=== PATIENT | male | born 1965 | race Caucasian/White ===

== ENCOUNTER 2022-02-10 15:03 | Emergency (ER) | payer OTHER, SELFPAY ==
--- NOTE | ~2022-02-10 | CT_ITS ---
EXAMINATION: CT cervical spine wo con DATE: 02/10/2022 15:57 INDICATION: Neck pain and stiffness. TECHNIQUE: Computed tomography (CT) of the cervical spine was performed without intravenous contrast. Automated exposure control and iterative reconstruction technique were employed. The dose-length pro duct was 513.58 mGy-cm. COMPARISON: CT cervical spine 02/05/2015 FINDINGS: A calcified right lung nodule and calcified mediastinal lymph nodes are consistent with old granulomas disc disease. There is mild kyphosis of lower cervical spine. There is 7 degrees levocurv ature of cervical spine. There is mild chronic height loss of C7 vertebral body. There are changes of anterior fusion procedure at C4-C5 with interbody device and anterior plate and screws. There is mil dly decreased disc height at C5-C6 with interbody fusion. There is severely decreased disc height at C6-C7 with endplate remodeling. Osseous central spinal canal is developmentally small. The following disc levels are specifically discussed: C2-C3: There is mild bilateral uncovertebral joint osteoarthritis. There is severe bilateral facet mimi int osteoarthritis. There is mild bilateral neural foraminal stenosis. There is mild central canal st enosis. C3-C4: There is mild bilateral uncovertebral joint osteoarthritis. There is severe right and moderate left facet joint osteoarthritis. There is mild bilateral neural foraminal stenosis. There is mild ce ntral canal stenosis. C4-C5: There is severe right and moderate left uncovertebral joint hypertrophy. There is ankylosis of the facet joints with mild hypertrophy. There is mild bilateral neural foraminal stenosis. There is mild central canal stenosis. C5-C6: There is ankylosis of the uncovertebral joints with mild hypertrophy. There is mild bilateral facet joint osteoarthritis. There is mild bilateral neural foraminal stenosis. There is mild central canal stenosis. C6-C7: There is severe bilateral uncovertebral joint osteoarthritis. There is severe right and mild l eft facet joint osteoarthritis. There is mild bilateral neural foraminal stenosis. There is mild cent ral canal stenosis. C7-T1: There is no uncovertebral joint osteoarthritis. There is moderate bilateral facet joint osteoa rthritis. There is no neural foraminal stenosis. There is no central canal stenosis. IMPRESSION: 1. Moderate cervical spondylosis, worsened from 02/05/2015. 2. Anterior fusion from C4 to C6. Reviewed, dictated and finalized at location A.
[2022-02-10 15:30] VITALS: BP 108/64; PULSE 102; RESP 18; TEMP 37; O2SAT 99
--- NOTE | 2022-02-10 15:33 | ED.GENADULT ---
HPI - General Adult General Chief complaint: Unspecified Stated complaint: neck pain Time Seen by Provider: 02/10/22 15:33 History of Present Illness HPI narrative: Patient is a 56-year-old male with a history of cervical stenosis here for evaluation of acute on chronic neck pain. Patient states he has been dealing with neck pain for the past 10 years. He has had procedure on the neck that he is unsure the name of. States the neck pain came back about a month ago, has worsened over the past 3 days. He states his neck feels stiff, and occasionally will have a shooting paresthesias on his right arm. He presented to [facility] 3 days ago upon symptom onset, tells me he had a full work-up but they did not do imaging of his neck. He has not taken any medications for his pain at home. He denies any fevers, chills, nausea, vomiting, headaches, visual changes. He is able to move his neck but he states it is painful. Related Data Allergies Allergy/AdvReac Type Severity Reaction Status Date / Time tramadol Allergy Unknown Unknown Verified 02/10/22 15:33 KETOROLAC TROMETHAMINE Allergy Unknown BLOOD Uncoded 02/17/16 22:29 CLOTTING, RASH, FEVER Review of Systems Review of Systems: Gen: Denies fevers or chills Eyes: Denies eye pain or visual change ENT: Denies congestion Respiratory: Denies shortness of breath or cough CV: Denies chest pain or palpitations GI: Denies abdominal pain nausea, emesis or diarrhea : denies burning, urgency, frequency or hematuria Musculoskeletal: Reports neck pain. Denies back pain or muscle pain Neuro: Denies numbness, tingling, weakness or focal weakness Skin: Denies rash Except as documented, all other systems reviewed and negative [facility] Family History Family History (Updated 12/04/15 @ 23:19 by DOCTOR UNKNOWN) Sibling Family history of obesity Depression Hypertension Cerebrovascular accident Mother Depression Family history of migraine headaches Hypertension Cerebrovascular accident Family history of malignant neoplasm Family history of diabetes mellitus in first degree relative Father Depression Family history of migraine headaches Cerebrovascular accident Family history of malignant neoplasm Family history of coronary artery disease Family history of heart disease in male family member before age 55 Other Asthma Diabetes mellitus Social History Social History Smoking status: Current every day smoker Second hand tobacco smoke exposure: Yes Alcohol intake: never Exam Narrative: APPEARANCE: Well appearing, no pain in distress, well-nourished. Head: Normocephalic and atraumatic. EYES: PERRLA/EOMI, conjunctivae clear NOSE: No nasal drainage EARS: External ear normal in appearance THROAT: Oropharynx is clear. Mucous membranes are moist. NECK: Supple. No adenopathy, no masses. RESPIRATORY: Airway patent, respirations nonlabored. Clear to auscultation bilaterally, no rales, rhonchi, wheezing. CARDIOVASCULAR: Regular rate and rhythm without murmurs, rubs, or gallops. ABDOMINAL: Normoactive bowel sounds. Soft, nontender, nondistended. No rebound tenderness or guarding. MUSCULOSKELETAL: Spurling's test positive on the right. No midline tenderness to palpation of C-spine. Full range of motion in neck, notes most pain is with lateral flexion of the head. NEURO: Normal speech. No focal neurologic deficits. SKIN: Skin is warm and dry. No rashes. PSYCHIATRIC: Normal affect/mood. Course Vital Signs Vital signs: Vital Signs Temperature 98.6 F 02/10/22 15:30 Pulse Rate 102 H 02/10/22 15:30 Respiratory Rate 18 02/10/22 15:30 Blood Pressure 108/64 02/10/22 15:30 Pulse Oximetry 99 02/10/22 15:30 Temperature 98.6 F 02/10/22 15:30 Pulse Rate 102 H 02/10/22 15:30 Respiratory Rate 18 02/10/22 15:30 Blood Pressure 108/64 02/10/22 15:30 Pulse Oximetry 99 02/10/22 15:30 Medical Decision Making [facility] Narrative
[2022-02-10] MEDS: LIDOCAINE 5% PATCH 1 PATCH TRANSDERM (16:07)
[2022-02-10] MEDS: CYCLOBENZAPRINE HCL 10 MG TABLET PO (16:07)
[2022-02-10] MEDS: ACETAMINOPHEN 325 MG TABLET 650 MG PO (16:07)
== END 2022-02-10 16:41 | disposition home or self-care (01) ==
PROVIDERS: Emergency Provider Emergency Medicine; PCP Family Medicine
DX: M47.812 Spondylosis without myelopathy or radiculopathy, cervical region (principal); F17.200 Nicotine dependence, unspecified, uncomplicated
CPT/HCPCS: 72125; 99284; A9270

== ENCOUNTER 2022-05-22 09:51 | Outpatient (CLI) | payer OTHER, SELFPAY ==
--- NOTE | ~2022-05-22 | MR_ITS ---
MRI of the cervical spine Clinical History: Neck pain Technique: Axial T2-weighted and gradient images, and sagittal T1-weighted, T2-weighted, and STIR jewell ges were acquired. Findings: There is anterior fusion across the C4-C5 disc space with associated focal susceptibility a rtifact. No fracture or subluxation evident otherwise. No other significant bone marrow signal abnorm ality identified. At C2-C3, there is minimal disc osteophyte complex. No spinal canal stenosis or cord compression. The re is probable mild left neural foraminal narrowing. Right neural foramen preserved. At C3-C4, there is disc osteophyte complex resulting in mild central canal stenosis and minimal monty ening of the ventral cord. There is bilateral neural foraminal narrowing. At C4-C5, there is no disc bulge or herniation. No spinal canal stenosis or cord compression evident. There is bilateral neural foraminal narrowing. At C5-C6, there is minimal disc osteophyte complex. No vonda spinal canal stenosis or cord compressio n. There is probable minimal bilateral neural foraminal narrowing. At C6-C7, there is disc osteophyte complex resulting in focal mild canal stenosis without vodna cord compression. There is bilateral neural foraminal narrowing. There is decreased caliber the spinal cord with increased T2 signal at the C4-C5 level, likely reflec ting and chronic myelomalacia. Paravertebral soft tissues are unremarkable. Impression: Decreased caliber of the spinal cord with increased T2 signal to C4-C5 level, likely reflecting seque la of chronic myelomalacia. Correlate for other infectious/inflammatory disorder the spinal cord. Anterior fusion at C4-C5. Mild degenerative spondylitic changes, as detailed above, with multilevel neural foraminal narrowing present. Reviewed, dictated and finalized at [facility]. 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 Correlate for other infectiou s/inflammatory disorder the spinal cord. Anterior fusion at C4-C5. Mild degenerative spondylitic changes, as detailed above, with multilevel neura l foraminal narrowing present.
== END 2022-05-22 09:52 | disposition home or self-care (01) ==
PROVIDERS: PCP Family Medicine; Visit Provider Nurse Practitioner Adult Health
DX: M54.2 Cervicalgia (principal); M48.02 Spinal stenosis, cervical region; Z98.1 Arthrodesis status
CPT/HCPCS: 72141

== ENCOUNTER 2022-06-29 10:14 | Outpatient (CLI) | payer OTHER, SELFPAY ==
--- NOTE | 2022-06-29 10:00 | ECG_ITS ---
Measurements Intervals [place] Rate: 82 P: 72 HI: 153 QRS: 28 QRSD: 105 T: 57 QT: 374 QTc: 437 Interpretive Statements SINUS RHYTHM WITH OCCASIONAL SUPRAVENTRICULAR PREMATURE COMPLEXES INCOMPLETE RIGHT BUNDLE BRANCH BLOCK NO PREVIOUS ECG AVAILABLE FOR COMPARISON Electronically Signed On 06-29-2022 15:02:25 MATERIAL CONTROL SUPERVISOR by Bria Velez M.D.
[2022-06-29 11:22] LABS: Hematocrit 37.1 % (42.0-52.0); Hemoglobin 12.2 g/dL (14.0-18.0); Mean Corpuscular HGB Conc 32.9 g/dl (32-36); Mean Corpuscular Hemoglobin 27.7 pg (26-34); Mean Corpuscular Volume 84.3 fl (80-100); Mean Platelet Volume 9.5 fl (7.4-10.4); Platelet Count Result 354 k/mm3 (150-375); Red Cell Distribution Width 15.4 % (11.5-14.5); White Blood Count 5.8 K/mm3 (4.5-10.0)
[2022-06-29 11:27] LABS: INR 1.1; Partial Thromboplastin Time 33.7 SECONDS (22.3-36.8)
[2022-06-29 11:28] LABS: Anion Gap 6 mmol/L (8-16); Blood Urea Nitrogen 13 mg/dL (9-20); Calcium 8.9 mg/dL (8.4-10.2); Carbon Dioxide 26 mmol/L (22-30); Chloride 107 mmol/L (98-107); Estimated Glomerular Filt Rate > 60; Glucose 107 mg/dL (65-110); Potassium 4.1 mmol/L (3.4-5.0); Sodium 139 mmol/L (137-145)
[2022-06-29 12:02] LABS: Appearance Urine Clear (Clear); Bilirubin Urine Negative (Negative); Blood Urine Trace-intact (Negative); Color Urine Yellow (Yellow); Glucose Urine UA Negative (Negative); Ketones Urine Negative (Negative); Leukocyte Esterase Ur Negative LEU/UL (NEGATIVE); Nitrate Urine Negative (Negative); Protein Urine Negative (Negative); Specific Grav Ur 1.015 (1.001-1.035); Urobilinogen Urine 0.2 mg/dL (<2.0)
[2022-06-29 12:37] LABS: Add Urine Microscopic? YES; Mucus Urine Rare /lpf; RBC Urine 0-2 /hpf (0-2); WBC Urine 0-3 /hpf (0-3)
== END 2022-06-29 10:15 | disposition home or self-care (01) ==
PROVIDERS: PCP Family Medicine; Visit Provider Neurological Surgery
DX: Z01.818 Encounter for other preprocedural examination (principal); I45.10 Unspecified right bundle-branch block
CPT/HCPCS: 36415; 80048; 81001; 85027; 85610; 85730; 86850; 86900; 86901; 93005

== ENCOUNTER 2024-08-31 12:41 | Outpatient (CLI) | payer OTHER, SELFPAY ==
--- NOTE | ~2024-08-31 | CT_ITS ---
Non-contrast CT scan of the Abdomen and Pelvis Clinical indication: Incisional hernia Technique: 2.5 mm axial scans were obtained through the abdomen and pelvis without intravenous or or al contrast. Dose reduction technique was used on this scan by utilizing automated exposure control a nd iterative reconstruction technique. The dose-length product (DLP) was 1009.04 mGy-cm. Findings: Images through the lung bases reveal no abnormalities. Calcified hepatic and splenic granulomas are present. Probable small hyperdense left renal cyst. The kidneys, pancreas, gallbladder, and adrenals otherwise appear normal. There are atherosclerotic calci fications of the aorta. There is no evidence of bowel obstruction. Images through the pelvis were performed. There is no evidence of ascites or lymphadenopathy. Urinary bladder unremarkable. No pelvic mass seen. No ascites. Chronic appearing compression fractures of T12 and L3 are present. There are bilateral L4 pars intera rticularis defects, with minimal grade 1 anterolisthesis of L4 over L5. Impression: No significant hernia. Chronic compression fractures of T12 and L3. Bilateral L4 pars interarticularis defects. Evidence of prior granulomatous disease. Reviewed, dictated and finalized at [facility]. Impression: No significant hernia. Chronic compression fractures of T12 and L3. Bilateral L4 pars interarticularis defects. Evidence of prior granulomatous disease.
--- OUTSIDE RECORDS SUMMARY | 2024-08-31 12:47 | XMS_ITS | Clinical Summary ---
Author Organization [facility] Address [address] [place] [address] Care Team Providers Care End Touching Machine Operator Name Role Phone Emilia Gardner DO Primary Care Provider [phone] Source Comments [facility],non-owned Affiliates and Associated Physician Practices is amultiple site organization consisting of ambulatory clinics and hospital sitesin [place], [place], [place] and [place]. This disclosure is being madepursuant to the Care Everywhere program and may not contain all information available regarding this patient. Last updated 18.[facility] Allergies Active Allergy Reactions Criticality Noted Date Comments Ketorolac Nausea and/or Vomiting,Rash Medium 07/15/19 21 Ketorolac Tromethamine Other Low 05/17/2014 Tramadol Nausea and/or Vomiting,Rash Medium 05/17/19 15 Medications * Be aware that medications may not be up to date on this document. Alwaysverify current medications with the patient. Alprazolam (ALPRAZOLAM XR) 2 MG TB24 4 times daily. Activ e amLODIPine (NORVASC) 10 MG tablet amlodipine 10 mg tablet Active famotidine (PEPCID) 20 MG tablet famotidine 20 mg tablet Active FLUoxetine (PROZAC) 40 MG capsule 1 Active mirtazapine (REMERON) 45 MG tablet mirtazapine 45 mg tablet Active zolpidem (AMBIEN) 10 MG tablet zolpidem 10 mg tablet Active oxyCODONE-aceta minophen (PERCOCET) 5-325 MG tablet Take 1 (one) tablet by mouth 2 times daily as needed for Pain 14 tablet 1 Active Additional Information Patient not taking.Reported on 05/09/2023 rivaroxaban (Xarelto) 20 MG tablet Take 1 (one) tablet by mouth daily with food Active levothyroxine (Synthroid) 50 MCG tablet Take 1 (one) tablet by mouth daily before breakfast Active magnesium oxide (Mag-Ox) 400 MG tablet Take 1 (one) tablet by mouth once daily Active OLANZapine (ZyPREXA) 20 MG tablet Take 1 (one) tablet by mouth once daily Active dilTIAZem (Cardizem) 60 MG tablet Take 1 (one) tablet by mouth 4 times daily Active atorvastatin (Lipitor) 40 MG tablet Take 1 (one) tablet by mouth at bedtime Active lidocaine (Lidoderm) 5 % patch 3 Active predniSONE (Deltasone) 20 MG tablet 3 Active neomycin-polymy justin-hc (Cortisporin) 3.5-78225-7 otic suspension 3 Active ezetimibe (Zetia) 10 MG tablet 3 Active vitamin D, ergocalciferol, (Drisdol) 1.25 MG (81263 UT) capsule 3 Active gabapentin (Neurontin) 300 MG capsuleIndicati ons:Arthropathy of cervical facet joint Take 1 (one) capsule by mouth 3 times daily 90 capsule 2 4 Active cyclobenzaprine (Flexeril) 10 MG tabletIndicatio ns:Arthropathy of cervical facet joint Take 1 (one) tablet by mouth 3 times daily as needed for Muscle Spasms 90 tablet 2 4 Active Active Problems Problem Noted Date Diagnosed Date Degeneration of lumbar or lumbosacral interverte bral disc 06/15/2012 Back pain 06/13/2012 Immunizations Immunization Administration Dates Next Due [employer] primary monovalent 12+ yr 0.3mL Pur ple cap 08/31/2020 Family History Medical History Relation Name Comments Cancer - Stomach Father Cancer Mother Relation Name Status Comments Father Mother Social History Tobacco Use Types Packs/Day Years Used Date Smoking Tobacco: Every Day Cigarettes Smokeless Tobacco: Never Alcohol Use Standard Drinks/Week Comments Not Currently 0 (1 standard drink = 0.6 oz pur e alcohol) Sex and Gender Information Value Date Recorded Sex Assigned at Not on file Legal Sex Male 12:52 PM DINING 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 TABLES SET UP ATTENDANT Gender Identity Not on file Sexual Orientation Not on file Last Filed Vital Signs Vital Sign Reading Time Taken Comments Blood Pressure 130/80 09/29/2023 10:30 AM CDT Pulse 87 09/29/2023 10:30 AM CDT Temperature 36.7 C (98 F) 09/29/2023 10:30 AM CDT Respiratory Rate 16 09/29/2023 10:30 AM CDT Oxygen Saturation 97% 05/17/2023 6:09 PM DINING ROOM TABLES SET UP ATTENDANT Inhaled Oxygen Concentration - - Weight 98 kg (216 lb) 05/23/2023 11:02 AM DINING ROOM TABLES SET UP ATTENDANT Height 175.3 cm (5' 9 ) 05/23/2023 11:02 AM DINING ROOM TABLES SET UP ATTENDANT Body Mass Index 31.9 05/23/2023 11:02 AM DINING ROOM TABLES SET UP ATTENDANT Plan of Treatment Health Maintenance Due Date Last Done Comments COLON MONITORING 1963 COLONOSCOPY - COLON CA SCREENING 1963 CT COLONOGRAPHY - COLON CA SCREENING 1963 FIT - COLON CA SCREENING 1963 FLEX SIG - COLON CA SCREENING 1963 HIV SCREENING 1978 HEPATITIS C SCREENING 06/11/1981 DTAP/TDAP/TD VACCINES (1 - Tdap) 1982 PNEUMOCOCCAL VACCINE 50+ (1 of 2 - PCV) 1982 ZOSTER VACCINE (1 of 2) 2013 COVID-19 VACCINE (2 - season) 2024 08/31/2020 DEPRESSION SCREENING 05/08/2024 COLOGUARD (AGES 45-75) - COLON CA SCREENING 09/01/2024 09/01/2021 Colorectal Cancer Screening 09/01/2024 INFLUENZA VACCINE (Season Ended) 2025 02/22/2023, 05/19/2022, 01/21/2021, Additional history exists SCREENING FOR DIABETES 05/18/2026 , 10/02/2020, 05/17/2014 Respiratory Syncytial Virus (RSV) Vaccine Pt: or over 60 yrs (1 - 1-dose 75+ series) 2038 HEPATITIS B VACCINE Aged Out No longe r eligible based on patient's age to complete this topic HIB VACCINE Aged Out No longer eligi ble based on patient's age to complete this topic HPV VACCINE Aged Out No longer eligi ble based on patient's age to complete this topic MENINGOCOCCAL (Group B) VACCINE SHARED DECISION-MAKING Aged Out No longer eligible based on patient's age to complete this topic MENINGOCOCCAL GROUPS A/C/Y/W VACCINE Aged Out No longer eligible based on patient's age to complete this topic Procedures Procedure Name Priority Date/Time Associated Diagnosis Comments COMPREHENSIVE METABOLIC PANEL STAT 05/18/2023 1:51 AM DINING ROOM TABLES SET UP ATTENDANT from Last 3 Months or Most Recently Relevant to Health Maintenance Results * COMPREHENSIVE METABOLIC PANEL (05/18/2023 1:51 AM DINING ROOM TABLES SET UP ATTENDANT) BUN 10 7 - 26 mg/dL 05/18/2023 2:34 AM [facility] Creatinine 0.97 0.71 - 1.16 mg/dL 05/18/2023 2:34 AM [facility] Sodium 142 136 - 145 mmol/L 05/18/2023 2:34 AM [facility] Potassium 4.1 3.5 - 4.5 mmol/L 05/18/2023 2:34 AM [facility] Chloride 107 98 - 107 mmol/L 05/18/2023 2:34 AM [facility] CO2 26 22 - 29 mmol/L 05/18/2023 2:34 AM [facility] Glucose 88 70 - 115 mg/dL 05/18/2023 2:34 AM [facility] Calcium 9.0 8.4 - 10.2 mg/dL 05/18/2023 2:34 AM [facility] Protein Total 7.0 6.0 - 8.3 g/dL 05/18/2023 2:34 AM [facility] Albumin 4.0 3.4 - 5.0 g/dL 05/18/2023 2:34 AM [facility] Bilirubin Total 0.3 0.2 - 1.2 mg/dL 05/18/2023 2:34 AM [facility] Alkaline Phosphatase 100 40 - 150 U/L 05/18/2023 2:34 AM [facility] ALT 13 5 - 55 U/L 05/18/2023 2:34 AM [facility] AST 17 5 - 34 U/L 05/18/2023 2:34 AM [facility] Anion Gap 9 6 - 16 05/18/2023 2:34 AM [facility] BUN/Creatinine Ratio 10 7 - 23 05/18/2023 2:34 AM [facility] Osmolality Calculated 292 275 - 295 mOsm/kg 05/18/2023 2:34 AM [facility] Albumin/Globulin Ratio 1.3 1.1 - 2.3 05/18/2023 2:34 AM [facility] eGFR by CKD-EPI 90 >=90 mL/min/1.7 3 m2 05/18/2023 2:34 AM [facility] Blood BLOOD SPECIMEN / Unknown Venipuncture / Unknown 05/18/2023 1:51 AM [facility] 05/18/2023 2:04 AM [facility] Oliver Salgado MD LAB - CHEMISTRY ORDERABLES Final Result Performing Organization Address City/[facility] de Phone Number [facility] [address] [place] [address], [facility] [phone] from Last 3 Months or Most Recently Relevant to Health Maintenance Insurance [facility] Care Teams End Touching Machine Operator Relationship Specialty Start Date End Date Emilia Gardner DO [address] [facility] [address] [address] PCP - General 04/30/24
--- OUTSIDE RECORDS SUMMARY | 2024-08-31 12:47 | XMS_ITS | Continuity of Care Document ---
Author Organization [facility] Address [address] [place] [address] Phone Care Team Providers Care Fisher Lobster Name Role Phone Anthony Roe MD Unavailable Unavailable Advance Directives Directive Yes / No Effective Date File Name No Information Encounters Encounter Description Practice Location Reason(s) For Visit Diagnoses Date Provider Providers Copied on Encounter [facility], [address] [facility] [place] [id number], [place] tel:[phone] [facility] No Information Bhupinder Cruz. [address], [place], [place], [id number], [place]. tel:[phone] Family History Family Member Type Diagnosis Age At Onset No Information Payers Payer name Insurance type Covered democrat ID Authoriza tion(s) No Information Social History Type Description Quantity Date Captured Comments Sex Male Smoking Status No Information Chief Complaint And Reason For Visit No Information Plan Of Treatment Date Type Action Status No Information History Of Present Illness Encounter Date Complaint History Of Prese nt Illness No Information Instructions Date Instruction Additional Infor mation No Information Assessments Type Assessment Date No Information
--- OUTSIDE RECORDS SUMMARY | 2024-08-31 12:47 | XMS_ITS | Data Portability ---
Author Organization [facility] [employer], Main Office Address [address] [place] [address] Assessment No assessment recorded. Plan of Treatment Reminders Order Date Submit Date Provider Last Modified By Organization Details Last Modified Time Details Appointments None recorded. Lab TSH, serum or plasma 2022 023 [email or web address] [facility] (Lab), [address] [place], [address], 3 12:31:32 magnesium, serum or plasma 2022 023 [email or web address] Not available 20:00:43 hepatitis C virus RNA, quant, PCR, serum or plasma 2022 023 [email or web address] Not available 23:07:26 hepatic function panel, serum 2022 023 [email or web address] Not available 20:00:30 vitamin D, 25-hydroxy, total, serum 2022 023 [email or web address] Not available 02:08:37 CBC w/ auto diff 2022 023 [email or web address] Not available 3 19:28:49 BMP, serum or plasma 2022 023 [email or web address] Not available 20:00:41 TSH, serum or plasma 2022 023 [email or web address] Not available 20:21:04 Referral neurologist referral - Please call patient to schedule an appointment . Thank you 2023 024 [email or web address] [facility] [address] [facility], [place], [address], 4 08:49:43 pain management referral 2022 023 [email or web address] [place], [address] Vin Sharma, [address], [address], 4 18:10:07 Procedures None recorded. Surgeries None recorded. Imaging None recorded. Medication Orders hydrocodone 10 mg-acetamin ophen 325 mg tablet 2023 024 [email or web address] [facility] #40702, [address], [place], [place], [id number], 4 14:51:18 alprazolam 0.5 mg tablet 2023 024 [facility] #43381, [address], [place], [place], [id number], 4 11:39:14 hydrocodone 5 mg-acetamin ophen 325 mg tablet 2022 023 [email or web address] #24449, [address], [place], [place], [id number], 4 11:25:55 alprazolam 1 mg tablet 2022 023 [email or web address] #03203, [address], [place], [place], [id number], 4 11:26:02 alprazolam 2 mg tablet 2022 023 [email or web address] #38171, [address], [place], [place], [id number], 4 11:26:08 prednisone 20 mg tablet 2022 023 [email or web address] #25930, [address], [id number], 4 11:26:15 neomycin-po lymyxin-hyd rocort 3.5 mg-10,000 unit/mL-1 % ear drops,susp 2022 023 [email or web address] [facility] #39604, [address], [place], [place], [id number], 4 11:26:24 Patient TargetsNo targets recorded. Patient InstructionsNo instructions recorded. Reason for Referral Pain Management Referral for Degeneration of cervical intervertebral disc Referring Physician: Cristel Mclaughlin [facility], Encounter Date: 11/22/2022 Neurologist Referral for Dorothea chnoid cyst Please call patient to schedule an appointment. Thank you Referring Physician: Cristel Mclaughlin [facility], Encounter Date: 08/23/2023 Results Created Date Observation Date Name Description Value Unit Range Abnormal Flag Note LastModifiedBy Organization Detail LastModifiedTime 02/23/2002/22/2023 CBC/C OMPLE TE BLD COUNT W/DIF F white blood cells 6.1 x10'3 /uL 4.2-10 .8 Not Available [facility] (Lab) [address] [place], [address], 02/22/2023 19:28:49 02/23/2002/22/2023 CBC/C OMPLE TE BLD COUNT W/DIF F red blood cells 4.20 x10'6 /uL 4.10-5 .80 Not Available [facility] (Lab) [address] [place], [address], 02/22/2023 19:28:49 02/23/2002/22/2023 CBC/C OMPLE TE BLD COUNT W/DIF F hemoglobin 11.7 g/dL 13.2-1 7.0 low Not Available [facility] (Lab) [address] [place], [address], 02/22/2023 19:28:49 02/23/2002/22/2023 CBC/C OMPLE TE BLD COUNT W/DIF F hematocrit 37.0 % 39.3-5 0.0 low Not Available [facility] (Lab) [address] [place], [address], 02/22/2023 19:28:49 02/23/2002/22/2023 CBC/C OMPLE TE BLD COUNT W/DIF F mean red cell volume 88.1 fL 80.0-9 7.0 Not Available [facility] (Lab) [address] [place], [address], 02/22/2023 19:28:49 02/23/2002/22/2023 CBC/C OMPLE TE BLD COUNT W/DIF F mean red cell hemoglobin 27.9 pg 27.0-3 3.0 Not Available [facility] (Lab) [address] [place], [address], 02/22/2023 19:28:49 02/23/2002/22/2023 CBC/C OMPLE TE BLD COUNT W/DIF F mean RBC HGB concentratio n 31.6 g/dL 31.0-3 6.0 Not Available [facility] (Lab) [address] [place], [address], 02/22/2023 19:28:49 02/23/2002/22/2023 CBC/C OMPLE TE BLD COUNT W/DIF F red cell distribution width 14.8 % 11.8-1 5.5 Not Available [facility] (Lab) [address] [place], [address], 02/22/2023 19:28:49 02/23/2002/22/2023 CBC/C OMPLE TE BLD COUNT W/DIF F platelets 344 x10'3 /uL 150-40 0 Not Available [facility] (Lab) [address] [place], [address], 02/22/2023 19:28:49 02/23/2002/22/2023 CBC/C OMPLE TE BLD COUNT W/DIF F mean platelet volume 9.8 fL 9.0-12 .4 Not Available [facility] (Lab) [address] [place], [address], 02/22/2023 19:28:49 02/23/2002/22/2023 CBC/C OMPLE TE BLD COUNT W/DIF F neutrophils 70.4 % 39.0-7 2.0 Not Available [facility] (Lab) [address] [place], [address], 02/22/2023 19:28:49 02/23/2002/22/2023 CBC/C OMPLE TE BLD COUNT W/DIF F lymphocytes 17.6 % 16.0-4 7.0 Not Available [facility] (Lab) [address] [place], [address], 02/22/2023 19:28:49 02/23/2002/22/2023 CBC/C OMPLE TE BLD COUNT W/DIF F monocytes 8.5 % 5.0-12 .0 Not Available [facility] (Lab) [address] [place], [address], 02/22/2023 19:28:49 02/23/2002/22/2023 CBC/C OMPLE TE BLD COUNT W/DIF F eosinophils 2.3 % 1.0-7. 0 Not Available [facility] (Lab) [address] [place], [address], 02/22/2023 19:28:49 02/23/2002/22/2023 CBC/C OMPLE TE BLD COUNT W/DIF F basophils 1.0 % 0.0-2. 0 Not Available [facility] (Lab) [address] [place], [address], 02/22/2023 19:28:49 02/23/2002/22/2023 CBC/C OMPLE TE BLD COUNT W/DIF F immature granulocytes 0.2 % 0.00-0 .50 Not Available [facility] (Lab) [address] [place], [address], 02/22/2023 19:28:49 02/23/2002/22/2023 CBC/C OMPLE TE BLD COUNT W/DIF F neutrophils, absolute count 4.32 x10'3 /uL 1.5-8. 0 Not Available [facility] (Lab) [address] [place], [address], 02/22/2023 19:28:49 02/23/2002/22/2023 CBC/C OMPLE TE BLD COUNT W/DIF F lymphocytes, absolute count 1.08 x10'3 /uL 1.07-3 .43 Not Available [facility] (Lab) [address] [place], [address], 02/22/2023 19:28:49 02/23/2002/22/2023 CBC/C OMPLE TE BLD COUNT W/DIF F monocytes, absolute count 0.52 x10'3 /uL 0.29-0 .99 Not Available [facility] (Lab) [address] [place], [address], 02/22/2023 19:28:49 02/23/2002/22/2023 CBC/C OMPLE TE BLD COUNT W/DIF F eosinophils, absolute count 0.14 x10'3 /uL 0.02-0 .53 Not Available [facility] (Lab) [address] [place], [address], 02/22/2023 19:28:49 02/23/2002/22/2023 CBC/C OMPLE TE BLD COUNT W/DIF F basophils, absolute count 0.06 x10'3 /uL 0.01-0 .08 Not Available [facility] (Lab) [address] [place], [address], 02/22/2023 19:28:49 02/23/20 23 02/22/2023 CBC/C OMPLE TE BLD COUNT W/DIF F immature granulocytes ,absolute 0.01 x10'3 /uL 0.00-0 .05 Not Available [facility] (Lab) [address] [place], [address], 02/22/2023 19:28:49 02/23/2002/22/2023 CBC/C OMPLE TE BLD COUNT W/DIF F nucleated red blood cells 0.0 % -0 Not Available [facility] (Lab) [address] [place], [address], 02/22/2023 19:28:49 02/23/2002/22/2023 CBC/C OMPLE TE BLD COUNT W/DIF F NRBC# 0.00 x10'3 /uL Not Available [facility] (Lab) [address] [place], [address], 02/22/2023 19:28:49 02/23/20 23 02/22/2023 HEPAT IC/LI ARMANDO PANEL alkaline phosphatase 118 U/L 38-126 Not Available [facility] (Lab) [address] [place], [address], 02/22/2023 20:00:30 02/23/20 23 02/22/2023 HEPAT IC/LI ARMANDO PANEL alanine aminotransfe rase 27 U/L 0-50 Not Available [facility] (Lab) [address] [place], [address], 02/22/2023 20:00:30 02/23/20 23 02/22/2023 HEPAT IC/LI ARMANDO PANEL aspartate aminotransfe rase 29 U/L 15-46 Not Available [facility] (Lab) [address] [place], [address], 02/22/2023 20:00:30 02/23/2002/22/2023 HEPAT IC/LI ARMANDO PANEL bilirubin, total 0.20 mg/dL 0.20-1 .30 Not Available [facility] (Lab) [address] [place], [address], 02/22/2023 20:00:30 02/23/2002/22/2023 HEPAT IC/LI ARMANDO PANEL bilirubin, conjugated (direct) 0.00 mg/dL 0.00-0 .30 Not Available [facility] (Lab) [address] [place], [address], 02/22/2023 20:00:30 02/23/20 23 02/22/2023 HEPAT IC/LI ARMANDO PANEL biliurubin,u ncong. (indirect) 0.10 mg/dL 0.00-1 .1 Not Available [facility] (Lab) [address] [place], [address], 02/22/2023 20:00:30 02/23/2002/22/2023 HEPAT IC/LI ARMANDO PANEL total protein 7.2 g/dL 6.3-8. 2 Not Available [facility] (Lab) [address] [place], [address], 02/22/2023 20:00:30 02/23/2002/22/2023 HEPAT IC/LI ARMANDO PANEL albumin 4.4 g/dL 3.4-5. 0 Not Available [facility] (Lab) [address] [place], [address], 02/22/2023 20:00:30 02/23/2002/22/2023 HEPAT IC/LI ARMANDO PANEL globulin 2.8 g/dL 2.6-4. 2 Not Available [facility] (Lab) [address] [place], [address], 02/22/2023 20:00:30 02/23/20 23 02/22/2023 HEPAT IC/LI ARMANDO PANEL A/G ratio 1.6 ratio 1.0-2. 0 Not Available [facility] (Lab) [address] [place], [address], 02/22/2023 20:00:30 02/23/20 23 02/22/2023 BASIC METAB OLIC PANEL sodium 134 mmol/ L 137-14 5 low Not Available [facility] (Lab) [address] [place], [address], 02/22/2023 20:00:41 02/23/2002/22/2023 BASIC METAB OLIC PANEL potassium 5.1 mmol/ L 3.5-5. 1 Not Available [facility] (Lab) [address] [place], [address], 02/22/2023 20:00:41 02/23/20 23 02/22/2023 BASIC METAB OLIC PANEL chloride 100 mmol/ L 98-107 Not Available [facility] (Lab) [address] [place], [address], 02/22/2023 20:00:41 02/23/20 23 02/22/2023 BASIC METAB OLIC PANEL carbon dioxide 28 mmol/ L 22-30 Not Available [facility] (Lab) [address] [place], [address], 02/22/2023 20:00:41 02/23/20 23 02/22/2023 BASIC METAB OLIC PANEL anion gap 11.1 mmol/ L 14-22 low Not Available [facility] (Lab) [address] [place], [address], 02/22/2023 20:00:41 02/23/20 23 02/22/2023 BASIC METAB OLIC PANEL glucose 75 mg/dL 70-99 Not Available [facility] (Lab) [address] [facility] [place], [address], 02/22/2023 20:00:41 02/23/20 23 02/22/2023 BASIC METAB OLIC PANEL BUN 11 mg/dL 8-19 Not Available [facility] (Lab) [address] [facility] [place], [address], 02/22/2023 20:00:41 02/23/2002/22/2023 BASIC METAB OLIC PANEL creatinine 0.99 mg/dL 0.66-1 .25 Not Available [facility] [address] [facility] [place], [address], 02/22/2023 20:00:41 02/23/2002/22/2023 BASIC METAB OLIC PANEL GFR >60 Refer ence Range : [place] [facility] GFR Healt hy Adult : >60 mL/mi n/1.7 3 m2 Chron ic Kidne y Disea se: 15-60 mL/mi n/1.7 3 m2 Kidne y Failu re: <15/m L/min /1.73 m2 www.n iddk. nih.g ov The MDRD study equat ion has not been valid ated in child alireza <18 years of age; pregn ant women ; the elder ly >85 years of age; or in some racia l or ethni c subgr oups, such as nm nics. Outsi de the valid ated justino eters , estim ated GFR is less accur ate, requi ring clini юлия judgm ent on a case- by-ca se basis . Clini юлия inter preta tion for other races and ages must be made by the clini satinder. The MDRD study equat ion has not been valid ated for the evalu ation of serum creat inine relat ed to nutri lori l statu s or medic ation usage . For perso ns <18 years of age, a pedia tric GFR calcu lator is avail able on the [facility] websi te: https :[email or web address] jimenez.o rg/pr ofess ional s/kdo qi/gf r_cal culat or Not Available [facility] (Lab) [address] [place], [address], 02/22/2023 20:00:41 02/23/2002/22/2023 BASIC METAB OLIC PANEL calcium 9.5 mg/dL 8.4-10 .2 Not Available [facility] (Lab) [address] [place], [address], 02/22/2023 20:00:41 02/23/2002/22/2023 MAGNE SIUM magnesium 2.0 mg/dL 1.6-2. 3 Not Available [facility] (Lab) [address] [place], [address], 02/22/2023 20:00:43 02/23/2002/22/2023 VITAM IN D 25-HY DROXY [id number] 19.2 NG/mL 30-100 low Vitam in D Statu s: Defic ient: <20 ng/mL Insuf ficie nt: 20-29 ng/mL Suffi cient : 30-10 0 ng/mL Not Available Not Available 02/22/2023 20:18:29 02/23/2002/22/2023 TSH thyroid-stim ulating hormone 5.550 uIU/m L 0.465- 4.680 high Not Available [facility] (Lab) [address] [place], [address], 02/22/2023 20:21:04 02/23/2002/24/2023 HCV/H EPATI TIS C RT-PC R, QUANT hepatitis C quantitation COMMEN T IU/mL HCV Not Detec estelle Not Available [facility] (Lab) [address] [place], [address], 02/24/2023 23:07:26 02/23/2002/24/2023 HCV/H EPATI TIS C RT-PC R, QUANT test information: COMMEN T . The quant itati ve range of this assay is 15 IU/mL to 100 sandro on IU/mL . Perfo rmed at: [facility] [place] [address] , [place] [address] Lab Direc tor: Raina spangler MD, Phone : [phone] Not Available [facility] (Lab) [address] [place], [address], 02/24/2023 23:07:26 04/17/20 23 04/17/2023 TSH thyroid-stim ulating hormone 0.977 uIU/m L 0.465- 4.680 Not Available [facility] (Lab) [address] [place], [address], 04/17/2023 21:06:32 01/19/20 23 mobil e cardi ac telem etry (PROC ) No observ ation record ed. [address] [facility] [address], [place], [address], 09/17/2023 19:49:03 02/09/20 23 02/08/2023 XR, chest No observ ation record ed. [address] [place], [address], 02/22/2023 14:39:32 02/09/20 23 02/08/2023 CT, head, w/o contr ast No observ ation record ed. [address] [place], [address], 02/22/2023 14:39:17 02/10/20 23 02/09/2023 MRI, brain + brain stem, w/o contr ast No observ ation record ed. [address] [place], [address], 02/22/2023 14:40:05 02/11/20 23 02/10/2023 cardi ac stres s test No observ ation record ed. [address] [place], [address], 02/22/2023 14:43:08 Result Notes None recorded. Problems Name Problem SNOMED Code Status Onset Date Resolution Date Notes Provider Name and Address Organization Details Recorded Time Injury of hand 834970939 Active Not Available [facility] 4 22:23:37 Disorder of thyroid gland 66451025 Active 2019 Not Available [facility] 4 22:23:37 Insomnia 232154822 Active Kait Escalante APRN [address], [place], [address] , [employer] 4 14:55:42 Mixed anxiety and depressiv e disorder 044078089 Active 2019 Kait Escalante APRN [address], [place], [address] , [employer] 4 14:55:49 Gastroeso phageal reflux disease 673490672 Active Kait Escalante APRN [address], [place], [address] , [employer] 4 14:55:20 Renal impairmen t 744350242 Active 2019 Kait Escalante APRN [address], [place], [address] , [employer] 4 14:56:02 Anemia 177720157 Active Kait Escalante APRN [address], [address] [employer], [place], [address] , [employer] 4 14:54:22 Lung mass 370963532 Active Not Available [facility] 4 22:23:37 Osteopeni a 088447999 Active Kait Escalante APRN [address], [address], [place], [address] , [employer] 4 14:55:57 Vitamin D deficienc y 06219053 Active Kait Escalante APRN [address], [place], [address] , [facility] [employer] [facility] 4 14:56:00 Depressiv e disorder 58621424 Active Kait Escalante APRN [address], [facility] [address], [place], [address] , [facility] [employer] [facility] 4 14:55:03 Chronic pain syndrome 366758524 Active Not Available [facility] 4 22:23:37 Inguinal hernia 741489707 Active Not Available [facility] 4 22:23:37 Osteoarth ritis 294440790 Active Kait Escalante APRN [address] [address], [place], [address] , [facility] [employer] [facility] 4 14:55:52 Hypothyro idism 79915503 Active 2019 Kait Escalante APRN [address], [address] [place] [address], [place], [address] , [facility] [employer] [facility] 4 14:55:31 Hypokalem ia 06207769 Active Not Available [facility] 4 22:23:37 Compressi on fracture 707230691 Active Not Available [facility] 4 22:23:37 Anxiety 76052618 Active Kait Escalante APRN [address], [facility] [address], [place], [address] , [facility] [employer] [facility] 4 14:54:25 Viral hepatitis C 48997541 Active Not Available [facility] 4 22:23:37 Hyperlipi demia 55075205 Active Kait Escalante APRN [address], [address], [place], [address] , [facility] [employer] [facility] 4 14:55:26 Nicotine dependenc e 40845206 Active Kait Escalante APRN [address], [address], [place], [address] , [facility] [employer] [facility] 4 14:56:05 Degenerat ion of cervical intervert ebral disc 58269845 Active Kait Escalante APRN [address], [address], [place], [address] , [employer] [facility] [employer] [facility] 4 14:54:57 Chronic pain 14715297 Active Kait Escalante APRN [address], [address], [place], [address] , [employer] [facility] [employer] [facility] 4 14:54:52 Colorecta l cancer detected by DNA-based stool screening 723187299 Active Not Available [facility] 4 22:23:37 Otalgia of right ear 7062353640 Active 2022 Not Available [facility] 4 22:23:37 Gastroeso phageal reflux disease without esophagit is 631308658 Active 2022 Not Available [facility] 4 22:23:37 Degenerat ion of lumbar intervert ebral disc 79991995 Active 2022 Kait Escalante APRN [address], [address], [place], [address] , [employer] [facility] [employer] 4 14:55:00 Acute situation al disturban ce 966921852 Active 2022 Kait Escalante APRN [address], [address], [place], [address] , [employer] [facility] [email or web address] [facility] 4 14:54:17 Arachnoid cyst 83996372 Active 2022 Not Available [facility] 4 22:23:37 Atrial fibrillat ion 88517989 Active 2022 LENNIE Farrar [address], [place], [address] , [employer] [facility] [employer] 4 14:54:34 Essential hypertens ion 26630291 Active 2022 Kait Escalante APRN [address], [address], [place], [address] , [employer] [facility] [employer] [facility] 4 14:55:11 Hypomagne semia 852305644 Active 2022 Not Available [facility] 4 22:23:37 Cervical spondylos is 620719185 Active 2022 Kait Escalante APRN [address], [address], [place], [address] , [facility] [employer] [facility] 4 14:54:40 Chronic neck pain 50123085579 07 Active Kait Escalante APRN [address], [address], [place], [address] , [place] - [employer] [facility] 4 14:51:06 Atrial fibrillat ion with rapid ventricul ar response 56415328668 9109 Active Kait Escalante APRN [address], [address], [place], [address] , [facility] [place] [facility] [employer] [employer] 4 14:54:37 Harmful pattern of use of alcohol 04851667 Active Kait Escalante APRN [address], [address], [place], [address] , [employer] - [facility] [employer] [facility] 4 14:54:20 Anxiety disorder 109096625 Completed 03/27/2024 Kait Escalante APRN [address], [address], [place], [address] , [employer] [facility] [employer] 4 15:02:13 Hypertens vashti disorder 03577459 Active Kait Escalante APRN [address], [address], [place], [address] , [facility] [employer] [facility] 4 14:51:07 Mental disorder 46595716 Active Kait Escalante APRN [address], [address], [place], [address] , [facility] [employer] 4 14:55:45 Chronic hepatitis C 760617871 Active Kait Escalante APRN [address], [address], [place], [address] , [facility] [employer] [facility] 4 14:54:45 Cerebral arachnoid cyst 632977431 Active Kait Escalante APRN [address], [address], [place], [address] , [facility] 4 14:52:23 Chest pain 58574248 Jose Escalante APRN [address], [address], [place], [address] , [facility] 4 14:52:23 History of atrial fibrillat ion 325075704 Jose Escalante APRN [address], [facility] [address], [place], [address] , [facility] 4 14:52:23 Dizziness 059392453 Jose Escalante APRN [address], [address] [address], [place], [address] , [facility] 4 14:52:23 Acute migraine 04589796026 4108 Jose Escalante APRN [address], [address] [place] [address], [place], [address] , [facility] 4 14:52:23 Problem Notes None recorded. Procedures Surgical History None recorded. Imaging Results Imaging Date Name Status LastModified by [facility] Details LastModified Time 01/18/2023 mobile cardiac telemetry (PROC) completed [address] [facility] [address], [place], [address], 09/17/2023 19:49:03 02/08/2023 XR, chest completed [address] [place], [address], 02/22/2023 14:39:32 02/08/2023 CT, head, w/o contrast completed [address] [place], [address], 02/22/2023 14:39:17 02/09/2023 MRI, brain + brain stem, w/o contrast completed [address] [place], [address], 02/22/2023 14:40:05 02/10/2023 cardiac stress test completed [email or web address] [facility] [address] [place], [address], 02/22/2023 14:43:08 Procedure Notes None recorded. Medical Equipment None Reported. Allergies Allergen ID Allergen Name Allergen Category Reaction Reaction Severity Criticality Documentation Date Start Date Code Code System Note Provider Name and Address Organization Details Recorded Time tramadol medicatio n nausea Not available Not available 07/06/2022 38915 RxNorm Not Available [facility] 3 08:51:22 09999 Toradol medicatio n nausea Not available Not available 07/06/2022 27223 RxNorm Not Available [facility] 3 08:51:22 94842 ketorolac medicatio n Not available Not available Not available 07/06/2022 04987 RxNorm Not Available [facility] 3 08:51:22 82915 Dilantin medicatio n nausea Not available Not available 07/06/202237131 0 RxNorm Pt not sure about this Not Available [facility] 3 08:51:22 44777 codeine medicatio n Not available Not available Not available 07/06/2022 2670 RxNorm Not Available [facility] 3 08:51:22 Medications Name Sig Start Date Stop Date Status Note LastModified by Organization Details LastModified Time multivitami n tablet 01/15 completed Not Available Not Available Not Available celecoxib 200 mg capsule Take 1 capsule twice a day by oral route as needed. 2022 active Not Available Not Available Not Avai lable fluoxetine 40 mg capsule TAKE 1 CAPSULE BY MOUTH EVERY DAY 2023 active Not Available Not Available Not Avai lable cyclobenzap rine 10 mg tablet 10 mg by oral route. active Not Available Not Available No t Available atorvastati n 40 mg tablet 1 tablet by oral route. active Not Available Not Available No t Available doxepin 50 mg capsule active Not Available Not Available N ot Available diltiazem 5 mg/mL intravenous solution 25 mg by intraven. route. 11/27 completed Not Available Not Available Not Available acetaminoph en 325 mg tablet 650 mg by oral route. 02/10 completed Not Available Not Available Not Available gabapentin 600 mg tablet active Not Available Not Available Not Available doxycycline hyclate 100 mg capsule Take 1 capsule twice a day by oral route for 10 days. 01/15 completed Not Available Not Available Not Available atorvastati n 20 mg tablet TAKE 1 TABLET BY MOUTH EVERY DAY 01/17 completed Not Available Not Available Not Available aspirin 325 mg tablet 325 mg by oral route. 12/26 completed Not Available Not Available Not Available alprazolam 1 mg tablet 2 tablets by oral route. active Not Available Not Available No t Available hydrocodone 5 mg-acetamin ophen 325 mg tablet 1 tablet by oral route. active Not Available Not Available No t Available lorazepam 2 mg/mL injection solution 2 mg by injection route. 02/10 completed Not Available Not Available Not Available ondansetron HCl 4 mg tablet 01/15 completed Not Available Not Available Not Available prednisone 20 mg tablet 3 po qday x 3 days then 2 po qday x 3 days then 1 po qday x 3 days then 1/2 po qday x 3 days then stop 08/22 completed Not Available Not Available Not Available ceftriaxone 250 mg solution for injection Take 250 mg by injection route for 1 day. 01/15 completed Not Available Not Available Not Available clonazepam 1 mg tablet 01/20 completed Not Available Not Available Not Available hydroxyzine pamoate 50 mg capsule active Not Available Not Available N ot Available olanzapine 10 mg tablet 20 mg by oral route. active Not Available Not Available No t Available hydroxyzine HCl 50 mg tablet TAKE 1 TABLET BY MOUTH FOUR TIMES DAILY active Not Available Not Available No t Available amlodipine 5 mg tablet Take 1 tablet every day by oral route for 30 days. 01/15 completed Not Available Not Available Not Available ciprofloxac in 500 mg tablet Take 1 tablet every 12 hours by oral route for 14 days. active Not Available Not Available No t Available hydrocodone 10 mg-acetamin ophen 325 mg tablet Take 1 tablet 4 times a day by oral route for 5 days. active Not Available Not Available No t Available omeprazole 40 mg capsule,del ayed release TAKE 1 CAPSULE BY MOUTH EVERY DAY active Not Available Not Available No t Available doxycycline monohydrate 100 mg tablet Take 1 tablet twice a day by oral route for 10 days. active Not Available Not Available No t Available sildenafil 100 mg tablet Take 1 tablet every day by mouth as needed for ED active Not Available Not Available No t Available ketorolac 30 mg/mL (1 mL) injection solution 30 mg by injection route. 11/27 completed Not Available Not Available Not Available baclofen 20 mg tablet 01/20 completed Not Available Not Available Not Available oxycodone-a cetaminophe n 5 mg-325 mg tablet Take 1 tablet every 4 hours by oral route as needed. 11/10 completed Not Available Not Available Not Available alprazolam 0.5 mg tablet active Not Available Not Available Not Available amoxicillin 875 mg tablet Take 1 tablet every 12 hours by oral route for 7 days. active Not Available Not Available No t Available famotidine 20 mg tablet 20 mg by oral route. active Not Available Not Available No t Available magnesium oxide 400 mg (241.3 mg magnesium) tablet 400 mg by oral route. active Not Available Not Available No t Available lorazepam 0.5 mg tablet active Not Available Not Available Not Available Nitrostat 0.4 mg sublingual tablet 0.4 mg by sublingua l route. 02/10 completed Not Available Not Available Not Available chlordiazep oxide 25 mg capsule 25 mg by oral route. 02/08 completed Not Available Not Available Not Available oxycodone-a cetaminophe n 10 mg-325 mg tablet Take 1 tablet every 6 hours by oral route. 01/20 completed Not Available Not Available Not Available tamsulosin 0.4 mg capsule TAKE 1 CAPSULE BY MOUTH EVERY DAY active Not Available Not Available No t Available cimetidine 200 mg tablet TAKE 1 TABLET BY MOUTH TWICE DAILY 01/17 completed Not Available Not Available Not Available amlodipine 10 mg tablet TAKE 1 TABLET BY MOUTH EVERY DAY active Not Available Not Available No t Available doxycycline monohydrate 100 mg capsule Take 1 capsule twice a day by oral route for 10 days. active Not Available Not Available No t Available levothyroxi ne 50 mcg tablet Take 1 tablet every day by oral route. active Not Available Not Available No t Available hydrocodone 7.5 mg-acetamin ophen 325 mg tablet 1 tablet by oral route. 08/22 completed Not Available Not Available Not Available cephalexin 500 mg capsule TAKE 1 CAPSULE BY MOUTH EVERY 6 HOURS active Not Available Not Available No t Available pantoprazol e 40 mg tablet,chloe yed release 1 tablet by oral route. active Not Available Not Available No t Available ranitidine 150 mg tablet TAKE 1 TABLET BY MOUTH TWICE DAILY 10/22 completed Not Available Not Available Not Available lidocaine 5 % topical patch 1 pat by topical route. active Not Available Not Available No t Available clonazepam 2 mg tablet 01/20 completed Not Available Not Available Not Available nicotine 21 mg/24 hr daily transdermal patch active Not Available Not Available Not Available fentanyl (PF) 50 mcg/mL injection solution 50 microgram s by injection route. 11/27 completed Not Available Not Available Not Available gabapentin 300 mg capsule 1 po tid active Not Available Not Available Not Available mirtazapine 45 mg tablet 45 mg by oral route. active Not Available Not Available No t Available chlordiazep oxide 10 mg capsule active Not Available Not Available Not Available alprazolam 2 mg tablet Take 1 tablet 3 times a day by oral route for 8 days. 08/22 completed Not Available Not Available Not Available sodium chloride 0.9 % intravenous solution 1000 mL by intraven. route. 11/26 completed Not Available Not Available Not Available ergocalcife rol (vitamin D2) 1,250 mcg (50,000 unit) capsule TAKE 1 CAPSULE BY MOUTH EVERY WEEK active Not Available Not Available No t Available lorazepam 1 mg tablet 1 mg by oral route. 02/08 completed Not Available Not Available Not Available levofloxaci n 500 mg tablet Take 1 tablet every 24 hours by oral route. 01/15 completed Not Available Not Available Not Available oxycodone-a cetaminophe n 7.5 mg-325 mg tablet 01/20 completed Not Available Not Available Not Available zolpidem 10 mg tablet 10 mg by oral route. active Not Available Not Available No t Available methylpredn isolone 4 mg tablets in a dose pack 01/20 completed Not Available Not Available Not Available diltiazem 60 mg tablet 120 mg by oral route. active Not Available Not Available No t Available fluoxetine 20 mg capsule 40 mg by oral route. active Not Available Not Available No t Available olanzapine 20 mg tablet Take 1 tablet every day by oral route at bedtime. active Not Available Not Available No t Available diazepam 5 mg tablet active Not Available Not Available No t Available amoxicillin 875 mg-potassiu m clavulanate 125 mg tablet Take 1 tablet every 12 hours by oral route for 5 days. 11/10 completed Not Available Not Available Not Available hydroxyzine pamoate 25 mg capsule 01/15 completed Not Available Not Available Not Available neomycin-po lymyxin-hyd rocort 3.5 mg-10,000 unit/mL-1 % ear drops,susp 4 drops in affected ear TID x 7 days 08/22 completed Not Available Not Available Not Available enoxaparin 40 mg/0.4 mL subcutaneou s syringe 40 mg by sub-q route. 12/17 completed Not Available Not Available Not Available ezetimibe 10 mg tablet 10 mg by oral route. active Not Available Not Available No t Available rosuvastati n 40 mg tablet 40 mg by oral route. active Not Available Not Available No t Available Klor-Con M20 mEq tablet,exte nded release 40 milliequi valents by oral route. 02/09 completed Not Available Not Available Not Available Mag-Al Plus 200 mg-200 mg-20 mg/5 mL oral suspension 30 mL by oral route. 02/10 completed Not Available Not Available Not Available nitrofurant oin monohydrate /macrocryst als 100 mg capsule 01/20 completed Not Available Not Available Not Available Cymbalta 20 mg capsule,del ayed release Take 1 capsule twice a day by oral route. active Not Available Not Available No t Available Cymbalta 60 mg capsule,del ayed release Take 1 capsule every day by oral route. 04/07 completed Not Available Not Available Not Available diltiazem 125 mg/125 mL (1 mg/mL) in dextrose 5 % IV 125 mg by intraven. route. 11/28 completed Not Available Not Available Not Available Ranexa 500 mg tablet,exte nded release 500 mg by oral route. 2022 active Not Available Not Available Not Avai lable ondansetron HCl (PF) 4 mg/2 mL injection solution 4 mg by injection route. 02/10 completed Not Available Not Available Not Available Multihance 529 mg/mL (0.1 mmol/0.2 mL) intravenous solution 20 mL by intraven. route. 02/09 completed Not Available Not Available Not Available OxyContin 30 mg tablet,exte nded release Take 1 tablet every 12 hours by oral route. 04/07 completed Not Available Not Available Not Available oxycodone 20 mg tablet Take 1 tablet twice a day by oral route. 05/05 completed Not Available Not Available Not Available Lexiscan 0.4 mg/5 mL intravenous syringe 0.4 mg by intraven. route. 02/10 completed Not Available Not Available Not Available Xarelto 20 mg tablet 1 tablet by oral route. active Not Available Not Available No t Available Eliquis 5 mg tablet 5 mg by oral route. 11/28 completed Not Available Not Available Not Available morphine 2 mg/mL intravenous syringe 2 mg by intraven. route. 02/10 completed Not Available Not Available Not Available OxyContin 20 mg tablet,raphael h resistant,e xtended release Take 1 tablet every 12 hours by oral route. 05/05 completed Not Available Not Available Not Available Vitals Date Recorded Body height Body mass index (BMI) Body weight Body temperature Heart rate Oxygen saturation Oxygen saturation in Arterial blood by Pulse oximetry Systolic blood pressure Diastolic blood pressure Provider Name and Address Organization Details Last Updated DateTime 3 175.26 cm 30.7 kg/m2 30095.2 1 g 97.7 [degF] 106 /min 99 % 99 % 136 mm[Hg] 88 mm[Hg] Ayden Crisostomo CMA [place] - S MD [employer] [facility] 3 11:39:50 Date Recorded Body height Body mass index (BMI) Body weight Body temperature Heart rate Oxygen saturation Oxygen saturation in Arterial blood by Pulse oximetry Systolic blood pressure Diastolic blood pressure Provider Name and Address Organization Details Last Updated DateTime 3 175.26 cm 30 kg/m2 02768.2 5 g 97.3 [degF] 97 /min 98 % 98 % 130 mm[Hg] 80 mm[Hg] Marivel Gutierrez RN [facility] [employer] 3 11:00:48 Date Recorded Body height Body mass index (BMI) Body weight Body temperature Heart rate Oxygen saturation Oxygen saturation in Arterial blood by Pulse oximetry Systolic blood pressure Diastolic blood pressure Provider Name and Address Organization Details Last Updated DateTime 3 175.26 cm 31 kg/m2 66293.4 g 97.9 [degF] 81 /min 98 % 98 % 132 mm[Hg] 80 mm[Hg] Marivel Gutierrez RN [facility] [employer] 3 14:31:31 Date Recorded Body height Body mass index (BMI) Body weight Body temperature Heart rate Oxygen saturation Oxygen saturation in Arterial blood by Pulse oximetry Systolic blood pressure Diastolic blood pressure Provider Name and Address Organization Details Last Updated DateTime 3 175.26 cm 31.7 kg/m2 05711.3 6 g 97.7 [degF] 78 /min 93 % 93 % 140 mm[Hg] 78 mm[Hg] Marivel Gutierrez RN [facility] [employer] 3 11:56:53 Date Recorded Body height Body mass index (BMI) Body weight Body temperature Heart rate Oxygen saturation Oxygen saturation in Arterial blood by Pulse oximetry Systolic blood pressure Diastolic blood pressure Provider Name and Address Organization Details Last Updated DateTime 4 175.26 cm 31.6 kg/m2 19418.7 7 g 98.7 [degF] 105 /min 97 % 97 % 148 mm[Hg] 82 mm[Hg] YUNIOR Navarro [facility] [employer] 4 11:21:34 Social History Question Answer Notes LastModified by Organizat ion Details LastModified Time Tobacco Smoking Status Current Some Day Smoker Not Available [employer] 07/06/2022 08:43:32 What Is Your Level Of Alcohol Consumption? Occasional [id number] Information not available 07/06/2022 What Is Your Level Of Caffeine Consumption? Moderate [id number] Information not available 07/06/2022 How Much Tobacco Do You Chew? None [id number] Information not available 07/06/2022 What Type Of Diet Are You Following? REGULAR [id number] Information not available 07/06/2022 Which Illicit Or Recreational Drugs Have You Used? No [id number] Information not available 07/06/2022 Do You Or Have You Ever Used E-cigarettes Or Vape? Never Used Electronic Cigarettes [id number] Information not available 07/06/2022 What Is Your Occupation? Disabled [id number] Information not available 07/06/2022 Have You Ever Been Counseled For Unhealthy Alcohol Use? No [id number] Information not available 07/06/2022 At What Age Did You Start Smoking Tobacco? 16 [id number] Information not available 07/06/2022 Are You Passively Exposed To Smoke? No [id number] Information not available 07/06/2022 Do You Or Have You Ever Used Smokeless Tobacco? Never Used Smokeless Tobacco [id number].[id number] Information not available 07/06/2022 How Much Tobacco Do You Smoke? 0.25 PPD [id number].[id number] Information not available 07/06/2022 Do You Use Any Illicit Or Recreational Drugs? No [id number].[id number] Information not available 07/06/2022 Has Tobacco Cessation Counseling Been Provided? No [id number] Information not available 07/06/2022 Do You Or Have You Ever Used Any Other Forms Of Tobacco Or Nicotine? No [id number].[id number] Information not available 07/06/2022 Sex: Unknown Functional Status Question Answer Note LastModified by Organizat ion Details LastModified Time What is your exercise level? Occasional [id number] Information not available 07/06/2022 Mental Status None recorded. Family History Relationship Description Onset Age of this Age Resolved Age Notes LastModified by Organization Details LastModified Time Unspecified Relation Hypertensive disorder [id number] Not available 07/06/2022 08:43:45 Medical History Condition Response BLINDNESS N RHEUMATIC FEVER N KIDNEY STONES N BLADDER PROBLEMS N MRSA N OTHER # 1 N POLIO N LUNG DISEASE/DISORDER N RADIATION / CHEMOTHERAPY N COPD N Other # 2 N BLOOD DISEASES N SURGERY N EAR OR HEARING PROBLEMS N MUMPS N BOWEL PROBLEMS N FEMALE PROBLEMS / INFECTIONS N DEPRESSION (INCLUDING POST ) Y STROKE/TIA Y THYROID DISEASE N ULCERS N BENIGN PROSTATIC HYPERPLASIA N MEASLES N CERVICALGIA N TB SKIN TEST N MYOCARDIAL INFARCTION N PARAPELGIA N OBESITY N GERD/NAUSEA N ANEURYSM N URINARY/BLADDER/KIDNEY PROBLEMS N CORONARY ARTERY DISEASE (CAD) N MENIERE'S DISEASE N ADDICTION CONCERNS N ENDOMETRIOSIS N USE OF BLOOD THINNERS N SKIN PROBLEMS N EMPHYSEMA N GASTROINTESTINAL DISORDER N MUSCLE,JOINT OR BONE PROBLEMS N GASTROINTESTINAL BLEEDING N BLOOD CLOTS N ASTHMA N CATARACTS N ERECTILE DYSFUNCTION N GI PROBLEMS N CHF N Low Testosterone N NEUROPATHY N INFERTILITY N AIDS/HIV N FRACTURES N CHEMOTHERAPY / RADIATION N VISION/EYE PROBLEMS N LIVER DISEASE N MALE HYPOGONADISM N HYPERTENSION N TOURETTE'S N ANXIETY DISORDER N BLOOD TRANSFUSION N ANEMIA/BLOOD DISORDER N CHRONIC EAR INFECTIONS N BRONCHITIS N TUBERCULOSIS N GLAUCOMA N FOOT PROBLEM N DIVERTICULITIS N CHICKENPOX N SLEEP APNEA N ALLERGIES/HAYFEVER N INFECTIOUS DISEASE N HEART ARRHYTHMIA N PROSTATE N INSOMNIA N HIGH CHOLESTEROL / HYPERLIPIDEMIA N HYPERTHYROIDISM N EYE PROBLEMS N EATING DISORDER N EDEMA N CHRONIC PAIN SYNDROME N CAROTID BLOCKAGE N CONSTIPATION N BACK / NECK PROBLEMS N HAVE YOU BEEN HOSPITALIZED OR SEEN IN [facility] IN THE PAST YEAR ? N ATHEROSCLEROSIS N BREAST PROBLEMS N DIALYSIS N ECZEMA N FIBROMYALGIA N OSTEOPOROSIS N ARTHRITIS N NO SIGNIFICANT PAST MEDICAL HISTORY N APPENDICITIS N DIABETES, TYPE N BAD TEETH N HEARTBURN / REFLUX N ADD/ADHD N AUTISM SPECTRUM DISORDER (ASD) N HEPATITIS / LIVER DISEASE Y PULMONARY DISEASE N GOUT N SLEEP DISORDER N ALZHEIMER'S DISEASE N PAIN N HERPES N DEMENTIA N HEADACHES/MIGRAINES N SEIZURES/EPILEPSY N VASCULAR DISEASE N PACEMAKER N DIZZINESS N HEART DISEASE/HEART PROBLEMS N KIDNEY DISEASE N DEVELOPMENTAL OR BEHAVIORAL DISORDERS N MULTIPLE SCLEROSIS N SCARLET FEVER N MENTAL DISORDER/ILLNESS N CARDIAC ARRHYTHMIA N CANCER: SPECIFY N PNEUMONIA N ATRIAL FIBRILLATION N Gall Stones N PULMONARY EMBOLISM N AUTOIMMUNE DISEASE N Immunizations Vaccine Type Date Status Note Provider Nam e and Address Organization Details Recorded Time Influenza, split virus, quadrivalent, PF 3 completed Marivel Gutierrez RN [facility], [place] 02/22/2023 15:42:18 Influenza, split virus, quadrivalent, PF 3 completed Kait Escalante, [facility] [address] [facility], [address], [address], [place] 03/27/2024 14:51:37 Influenza, split virus, quadrivalent, PF 0 completed Not Available [employer] 06/28/2023 22:23:38 Influenza, split virus, quadrivalent, PF 9 completed Not Available [facility] 06/28/2023 22:23:38 Influenza, split virus, quadrivalent, PF 1 completed Not Available [facility] 06/28/2023 22:23:38 Tdap 6 completed Not Available [facility] 06/28/2023 22:23:38 pneumococcal polysaccharide PPV23 6 completed Not Available [facility] 06/28/2023 22:23:38 Influenza, split virus, quadrivalent, PF 5 completed Not Available [facility] 06/28/2023 22:23:38 Past Encounters Encounter ID Performer Location Encounter Start Date Encounter Closed Date Diagnosis/Indication Diagnosis SNOMED-CT Code Diagnosis ICD10 Code Diagnosis Note [id number] [facility] [place] [address] [facility] [address] [place] [address] 11/10/2020 00:00:00 11/10/2020 12:03:54 [id number] [facility] [place] [address] [place] [address] [address] [place] [address] 01/21/2021 00:00:00 01/21/2021 10:59:23 [id number] [facility] [place] [address] [place] [address] [address] [place] [address] 03/02/2021 00:00:00 03/02/2021 09:37:35 [id number] [facility] [place] [address] [place] [address] 140 [facility] [place] [address] 08/10/2021 00:00:00 08/10/2021 16:39:57 [id number] [facility] [address] [address] 01/17/2022 00:00:00 01/24/2022 13:57:32 [id number] [facility] [place] [address] [facility] [address] [place] [address] 01/18/2022 00:00:00 02/03/2022 19:37:45 [id number] [facility] [place] [address] [place] [address] 02/28/2022 00:00:00 03/07/2022 16:43:25 [id number] [facility] [place] [address] [place] [address] 05/19/2022 00:00:00 06/06/2022 13:03:14 [id number] [facility] [place] [address] [facility] [address] [place] [address] 06/08/2022 00:00:00 06/08/2022 14:27:34 [id number] Cristel Mclaughlin MD [facility] [place] [address] [facility] [address] [place] [address] 08/22/2022 11:29:52 08/22/2022 11:58:44 Degeneration of cervical intervertebral disc 73459319 M50.30 having upcoming surgery with Dr. Lundberg on the cervical spine pending insurance approval prednisone 20 mg taper with food, avoid other nsaids Otalgia of right ear 013 3484876 H92.01 may be having some referred painENT referral if no improvemen t [id number] Cristel Mclaughlin MD [facility] [place] [address] [facility] [address] [place] [address] 11/22/2022 10:48:57 11/22/2022 12:30:05 Degeneration of cervical intervertebral disc 63009266 M50.30 having upcoming surgery with Dr. Lundberg on the cervical spine pending insurance approval Acute situ ational disturbance 531203351 F43.20 will be traveling to [place] after sudden of sister and nephewdo not take before driving/wo rkinguse sparingly, will not give ongoing scripts [id number] Cristel Mclaughlin MD [facility] Primary [facility] [place] [address] [facility] [address] [place] [address] 02/22/2023 14:23:35 02/22/2023 15:10:49 Administration of influenza vaccine [id number] Z23 Arachnoid cyst 93000193 G93.0 was seen by neurologsurendra arreola by telehealth while inpatient, was referred to neurology to f/u as an outptMRI reviewed Viral hepatitis C 847715 07 B19.20 recheck numbers, if positive, will refer to hepatology Atrial fibrillation 4943 [address] Subramanian ontinue xarelto 20 mg daily Vitamin D deficiency 347 25239 E55.9 Essential hypertension 73932872 I10 stable Hypothyroidism 72220871 E03.9 Hypomagnesemia 644498493 E83.42 Acute situ ational disturbance 039877462 F43.20 refill givenuse sparinglyP t understand s this medication has risk for abuse/depe ndence and agrees to take it only as prescribed and to guard from loss/theft [id number] Cristel Mclaughlin MD [facility] Primary Care [address] [place] [address] 04/17/2023 11:52:43 04/17/2023 12:56:50 Hypothyroidism 92383894 E03.9 Degenerati on of cervical intervertebral disc 98029671 M50.30 has upcoming appt with neurosurge ry 05/04/23 [id number] Cristel Mclaughlin MD [facility] [address] [place] [address] 08/23/2023 11:16:49 08/23/2023 11:43:41 Acute situational disturbance 099205597 F43.20 refill givenuse sparinglyP t understand s this medication has risk for abuse/depe ndence and agrees to take it only as prescribed and to guard from loss/theft has appt to establish with psych on September 054pt understand s we will not continue to refill this med Degenerati on of cervical intervertebral disc 67272526 M50.30 has upcoming appt with pain mgmt for injectionp t understand s we will not provide [facility]ci pain pills Arachnoid cyst 73947671 G93.0 was seen by neurologsurendra arreola by telehealth while inpatient, was referred to neurology to f/u as an outpt but has not heard back yetMRI done 02/2023 Essential hypertension 89076573 I10 a bit elevated today, but he is stressed from his current divorcesee s cardiology will monitor home bpsf/u in 3 months Health Concerns Section Related Observation LastModified by Organization Detai ls LastModified Time None Recorded Concern Status LastModified by Organization Details LastModified Time None Recorded Advance Directives Directive None Recorded Payers Encounter Date Sequence Insurance Name Policy Number Policy Vasquez Covered Member ID Avsquez Member ID Guarantor Name 08/22/2022 1 [facility] ON OR AFTER 11/05/20 (MEDICAID REPLACEMENT - HMO) Jose Domínguez [id number] Jose Domínguez 11/22/2022 1 [facility] ON OR AFTER 11/05/20 (MEDICAID REPLACEMENT - HMO) Jose Domínguez [id number] Jose Domínguez 02/22/2023 1 [facility] ON OR AFTER 11/05/20 (MEDICAID REPLACEMENT - HMO) Jose Domínguez [id number] Jose Domínguez 04/17/2023 1 [facility] ON OR AFTER 11/05/20 (MEDICAID REPLACEMENT - HMO) Jose Domínguez [id number] Jose Domínguez 08/23/2023 1 [facility] ON OR AFTER 11/05/20 (MEDICAID REPLACEMENT - HMO) Jose Domínguez [id number] Jose Domínguez Notes Date Note Type Note Provider Name and Address Organization Details Recorded Time 08/22/2022 text/html met with neurosu hannah Lundberg and is scheduled for surgery cervical spine on 07/05/22. No chest pain, no sob. He is able to climb a flight of stairs and walk through a store, he is limited by pain not by dyspnea. He has limited use of his arms due to cervical disk disease. He needs help with personal care and household tasks. He is very stressed about the surgery and requests some alprazolam which has been helpful to him in the past. update 08/22/22: There has been an issue with insurance approval for his surgery so it is being rescheduled. He continues to have neck pain, headache, poor mobility. He is having ear discomfort right side x 1 week ago, feels like something crawling around. Cristel Mclaughlin MD [address] [place] [address], [facility] [address], [place], [id number], [place] [employer] 08/22/2022 11:50:54 11/22/2022 text/html met with neurosu hannah Lundberg and is scheduled for surgery cervical spine on 07/05/22. No chest pain, no sob. He is able to climb a flight of stairs and walk through a store, he is limited by pain not by dyspnea. He has limited use of his arms due to cervical disk disease. He needs help with personal care and household tasks. He is very stressed about the surgery and requests some alprazolam which has been helpful to him in the past. update 08/22/22: There has been an issue with insurance approval for his surgery so it is being rescheduled. He continues to have neck pain, headache, poor mobility. He is having ear discomfort right side x 1 week ago, feels like something crawling around. update 11/22/22: Still waiting on insurance approval for his surgery. He is driving next week to [place] to his sister and nephew's . He is very stressed and anxious. No interval improvement in his neck pain. Cristel Mclaughlin MD [address], [place], [id number], [employer] 12/05/2022 08:13:50 02/22/2023 text/html he d/c his dilti azem and restarted his amlodipine due to dizzinesscurrently on xarelto for a fibhas appt with cardiology Dr. Mcgrath tomorrow found arachnoid cyst on CT with confirmation was told inpatient that his kidneys and liver aren't working well, but labs are ok. Has h/o hep c, no treatment in the past. Cristel Mclaughlin MD [address], [place], [address], [employer] 02/22/2023 15:05:14 04/17/2023 text/html he d/c his dilti azem and restarted his amlodipine due to dizzinesscurrently on xarelto for a fibhas appt with cardiology Dr. Mcgrath tomorrow found arachnoid cyst on CT with confirmation was told inpatient that his kidneys and liver aren't working well, but labs are ok. Has h/o hep c, no treatment in the past. update 04/17/23: no interval change Cristel Mclaughlin MD [address], [place], [address], [employer] [facility] [employer] 05/04/2023 19:24:13 08/23/2023 text/html he d/c his dilti azem and restarted his amlodipine due to dizzinesscurrently on xarelto for a fibhas appt with cardiology Dr. Mcgrath tomorrow found arachnoid cyst on CT with confirmation was told inpatient that his kidneys and liver aren't working well, but labs are ok. Has h/o hep c, no treatment in the past. update 04/17/23: no interval change update 08/23/23: pain mgmt has recommended shots for the cervical spine. He has appt with psychiatry to establish care 09/06/23. He has not had f/u on his arachnoid cyst yet. He was seen by neurologist by telehealth while inpatient, was referred to neurology to f/u as an outpt but has not heard back yet. MRI was done 02/2023. Cristel Mclaughlin MD [address], [place], [address], [employer] [facility] [employer] 09/06/2023 15:54:17
== END 2024-08-31 12:42 | disposition home or self-care (01) ==
PROVIDERS: PCP Family Medicine; Visit Provider Surgery
DX: K43.2 Incisional hernia without obstruction or gangrene (principal); S32.030A Wedge compression fracture of third lumbar vertebra, initial encounter for closed fracture; X58.XXXA Exposure to other specified factors, initial encounter
CPT/HCPCS: 74176